=== PATIENT | male | born 1955 | race Caucasian/White ===

== ENCOUNTER → 2023-02-11 | Day surgery (SDC) | payer BC, MEDICARE ==
[~2023-02-11] MED LIST: PROPOFOL 10 MG/ML 20 ML VIAL IV ONE
[2023-02-11 09:39] LABS: Glucose,Whole Blood 97 mg/dL (70-110)
[2023-02-11] MEDS: LACTATED RINGERS 1,000 ML IV SCH ×2 (09:41→10:37)
[2023-02-11 09:47] VITALS: TEMP 97.3
--- NOTE | 2023-02-11 10:53 | P.PCN ---
Date of Procedure: 02/11/23 Procedure(s) Performed: BRIEF HISTORY: Patient is a 67-year-old pleasant male scheduled for an elective colonoscopy as a part of screening for colon cancer. PROCEDURE PERFORMED: Colonoscopy. PREOPERATIVE DIAGNOSIS: Screening for colon cancer IV sedation per Anesthesia. PROCEDURE: After informed consent was obtained, the patient, was brought into the endoscopy unit. IV sedation was administered by Anesthesia under continuous monitoring. Digital rectal examination was normal. Initially the Olympus CF-160 flexible video colonoscope was then inserted in the rectum, gradually advanced into the cecum without any difficulty. Careful examination was performed as the scope was gradually being withdrawn. Ileocecal valve and the appendiceal orifice were visualized and appeared normal. Prep was fair.. Mucosa of the cecum, ascending colon, transverse colon, descending colon, sigmoid colon, and rectum appeared normal. Scattered sigmoid diverticulosis. Retroflexion was performed in the rectum and no lesions were seen. The patient tolerated the procedure well. IMPRESSION: Scattered sigmoid diverticulosis No evidence of colorectal neoplasia RECOMMENDATIONS: Findings of this examination were discussed with the patient as well as his family.He was advised to be a high-fiber diet and take fiber supplements a regular basis and have a repeat screening colonoscopy in 10 years.
[2023-02-11 11:11] VITALS: RESP 16
[2023-02-11 11:32] VITALS: BP 107/70; PULSE 54
== END ==
LOC: ORWHC2ENDO 09:14
PROVIDERS: ATTEND Internal Medicine Gastroenterology
DX: Z12.11 Encounter for screening for malignant neoplasm of colon (principal); K57.30 Diverticulosis of large intestine without perforation or abscess without bleeding; I10 Essential (primary) hypertension; E78.5 Hyperlipidemia, unspecified; E11.9 Type 2 diabetes mellitus without complications; Z79.84 Long term (current) use of oral hypoglycemic drugs; Z79.899 Other long term (current) drug therapy
CPT/HCPCS: 45378; J2704